=== PATIENT | female | born 1995 | race Caucasian/White ===

== ENCOUNTER 2017-05-02 16:09 | Observation (INO) | payer BC, MEDICAID ==
[2017-05-02] VITALS (7 sets, daily range): BP systolic 96–107; BP diastolic 51–59; PULSE 71–86; TEMP 97.3–98.4
[~2017-05-02] VITALS: Ht 157.5 cm; Wt 66.4 kg
[2017-05-02] MEDS ORDERED: XANAX .25M0.25 MG/TA PO (16:18)
[2017-05-02] MEDS ORDERED: PROTONIX20 MG PO (16:18)
[2017-05-02] MEDS ORDERED: LITHIUM CA150 MG/CAP PO (16:19)
[2017-05-02 17:15] LABS: BASO # 0.1 (0.0-0.2); BASO % 0.4 % (0.0-2.0); EOS % 0.1 % (0-4.0); GRAN # 13.8 (1.4-6.5); GRAN % 82.1 % (42.2-75.2); HEMATOCRIT 38.6 % (35.0-45.0); HEMOGLOBIN 12.5 g/dl (12.0-15.0); LYMPH % 11.7 % (20.0-51.0); MEAN CELL VOLUME 88 fl (80.0-95.0); MEAN CORPUSCULAR HEMOGLOBIN 29 pg (26.0-32.0); MEAN CORPUSCULAR HGB CONC 32 g/dl (33.0-37.0); MEAN PLATELET VOLUME 9.6 fl (7.4-10.4); MONO # 0.9 (0.1-0.6); MONO % 5.3 % (1.7-9.3); PLATELET COUNT 338 K/mm3 (130-400); RED BLOOD COUNT 4.39 M/mm3 (4.10-5.30); REDCELL DISTRIBUTION WIDTH-CV 13.3 % (11.5-14.5)
[2017-05-02 17:25] LABS: COLLECTION METHOD CLEAN CATCH
[2017-05-02 17:26] LABS: BILIRUBIN,TOTAL 0.5 mg/dL (0.0-1.0); CALCIUM 9.6 mg/dL (8.4-10.2); CREATININE, serum 0.77 mg/dL (0.52-1.25); POTASSIUM 3.7 mmol/L (3.4-5.0); TOTAL PROTEIN 8.6 gm/dL (6.4-8.2)
[2017-05-02 19:09] LABS: PH 6 (5-8); URINE APPEARANCE Clear; URINE BILIRUBIN Negative (NEGATIVE); URINE BLOOD Negative (NEGATIVE); URINE COLOR Yellow; URINE GLUCOSE Negative (NEGATIVE); URINE KETONE Negative (NEGATIVE); URINE LEUKOCYTE ESTERASE Negative (NEGATIVE); URINE NITRATE Negative (NEGATIVE); URINE PROTEIN(semi-quant) Negative (NEGATIVE); URINE UROBILINOGEN Negative (NEGATIVE)
[2017-05-02 19:11] LABS: URINE BACTERIA None Seen /hpf; URINE RBC 0-2 /hpf
[2017-05-03 00:43] VITALS: BP 122/75; PULSE 71; TEMP 98.2
[2017-05-03 05:43] VITALS: BP 97/48; PULSE 58; TEMP 98.2
[2017-05-03] MEDS ORDERED: NORCO 325 MG-51 TAB PO (09:02)
[2017-05-03 10:44] VITALS: BP 102/62; PULSE 96; TEMP 97.9
== END 2017-05-03 14:30 | disposition home or self-care (01) ==
LOC: COL.ER 16:09 → SURG 18:51
PROVIDERS: Emergency Medicine
DX: K35.80 Unspecified acute appendicitis (principal); F17.210 Nicotine dependence, cigarettes, uncomplicated; F25.9 Schizoaffective disorder, unspecified; F41.9 Anxiety disorder, unspecified; Z88.1 Allergy status to other antibiotic agents; F41.0 Panic disorder [episodic paroxysmal anxiety]
CPT/HCPCS: J0330; J1100; J1200; J1885; J1956; J2250; J2270; J2405; J2704; J2710; J2765; J3010; J7030; J7120; Q9967

== ENCOUNTER 2017-06-17 22:21 | Emergency (ER) | payer BC, MEDICAID ==
[~2017-06-17] VITALS: Ht 160 cm; Wt 65.9 kg
[~2017-06-17 22:21] MED LIST: LITHIUM CA150 MG/CAP PO; NORCO 325 MG-51 TAB PO; PROTONIX20 MG PO; XANAX .25M0.25 MG/TA PO
[2017-06-17 22:24] VITALS: BP 141/98; PULSE 106; TEMP 97.9
== END 2017-06-17 22:56 | disposition home or self-care (01) ==
LOC: COL.ER 22:21
DX: S61.412A Laceration without foreign body of left hand, initial encounter (principal); F41.9 Anxiety disorder, unspecified; Z88.1 Allergy status to other antibiotic agents; W26.0XXA Contact with knife, initial encounter

== ENCOUNTER 2017-08-16 20:24 | Emergency (ER) | payer BC, MEDICAID ==
[~2017-08-16] VITALS: Ht 160 cm; Wt 67.7 kg
[2017-08-16 20:30] VITALS: BP 133/89; PULSE 131; TEMP 100.4
[2017-08-16] MEDS ORDERED: VRAYLAR1.5 MG PO (22:16)
[2017-08-16] MEDS ORDERED: INDERAL 10MG10 MG PO (22:16)
== END 2017-08-16 23:12 | disposition home or self-care (01) ==
LOC: COL.ER 20:24
DX: S52.101A Unspecified fracture of upper end of right radius, initial encounter for closed fracture (principal); V00.131A Fall from skateboard, initial encounter; Y92.830 Public park as the place of occurrence of the external cause

== ENCOUNTER 2018-01-22 15:24 | Emergency (ER) | payer BC, MEDICAID ==
[~2018-01-22] VITALS: Ht 160 cm; Wt 75.5 kg
[~2018-01-22 15:24] MED LIST changes: +INDERAL 10MG10 MG PO; +VRAYLAR1.5 MG PO
[2018-01-22 16:03] LABS: COLLECTION METHOD CLEAN CATCH
[2018-01-22 16:06] LABS: BASO % 0.5 % (0.0-2.0); EOS # 0.1 (0.0-0.7); EOS % 0.9 % (0-4.0); GRAN # 5.4 (1.4-6.5); GRAN % 64.3 % (42.2-75.2); HEMATOCRIT 40.5 % (35.0-45.0); HEMOGLOBIN 13.3 g/dl (12.0-15.0); LYMPH # 2.3 (1.2-3.4); LYMPH % 27.7 % (20.0-51.0); MEAN CELL VOLUME 85 fl (80.0-95.0); MEAN CORPUSCULAR HEMOGLOBIN 28 pg (26.0-32.0); MEAN CORPUSCULAR HGB CONC 33 g/dl (33.0-37.0); MEAN PLATELET VOLUME 9.6 fl (7.4-10.4); MONO # 0.6 (0.1-0.6); MONO % 6.5 % (1.7-9.3); PLATELET COUNT 385 K/mm3 (130-400); RED BLOOD COUNT 4.74 M/mm3 (4.10-5.30); REDCELL DISTRIBUTION WIDTH-CV 13.7 % (11.5-14.5)
[2018-01-22 16:09] LABS: PH 8 (5-8); SQUAMOUS EPITHELIAL 0-2 /hpf; URINE APPEARANCE Clear; URINE BACTERIA Rare /hpf; URINE BILIRUBIN Negative (NEGATIVE); URINE BLOOD Negative (NEGATIVE); URINE COLOR Yellow; URINE GLUCOSE Negative (NEGATIVE); URINE KETONE Negative (NEGATIVE); URINE LEUKOCYTE ESTERASE Negative (NEGATIVE); URINE NITRATE Negative (NEGATIVE); URINE PROTEIN(semi-quant) Negative (NEGATIVE); URINE RBC 0-2 /hpf; URINE UROBILINOGEN Negative (NEGATIVE)
[2018-01-22 16:24] LABS: ALANINE AMINOTRANSFERASE 31 U/L (9-52); ALBUMIN 4.4 gm/dL (3.5-5.0); ALKALINE PHOSPHATASE 54 U/L (50-136); ANION GAP 8 mmol/L (7-16); AST,SGOT 31 U/L (15-37); BILIRUBIN,TOTAL 0.7 mg/dL (0.0-1.0); BLOOD UREA NITROGEN 13 mg/dL (7-17); CALCIUM 9.9 mg/dL (8.4-10.2); CARBON DIOXIDE 28 mmol/L (22-30); CHLORIDE 105 mmol/L (98-107); GLUCOSE 91 mg/dL (74-106); POTASSIUM 4.2 mmol/L (3.4-5.0); SODIUM 141 mmol/L (137-145); TOTAL PROTEIN 8.1 gm/dL (6.4-8.2)
[2018-01-22 16:25] LABS: ACETAMINOPHEN < 10 ug/mL (10-30); ALCOHOL(ethanol),MEDICAL < 10 mg/dL; SALICYLATE < 1.0 mg/dL; TRICYCLIC ANTIDEPRESS URINE NEGATIVE
[2018-01-23 05:00] VITALS: TEMP 97.8
[2018-01-23 10:22] VITALS: BP 103/58; PULSE 82
== END 2018-01-23 10:48 ==
LOC: COL.ER 15:24
PROVIDERS: Emergency Medicine
DX: T42.4X2A Poisoning by benzodiazepines, intentional self-harm, initial encounter (principal); S60.811A Abrasion of right wrist, initial encounter; S60.812A Abrasion of left wrist, initial encounter; R45.851 Suicidal ideations; F32.9 Major depressive disorder, single episode, unspecified; F25.9 Schizoaffective disorder, unspecified; F17.210 Nicotine dependence, cigarettes, uncomplicated; X78.8XXA Intentional self-harm by other sharp object, initial encounter
CPT/HCPCS: J2405; J7030

== ENCOUNTER 2018-12-23 16:20 | Emergency (ER) | payer BC, MEDICAID ==
[~2018-12-23] VITALS: Ht 160 cm; Wt 77.3 kg
[2018-12-23 16:31] VITALS: TEMP 98.2
[2018-12-23 16:52] LABS: COLLECTION METHOD CLEAN CATCH
[2018-12-23 17:30] LABS: BASO # 0.1 (0.0-0.2); BASO % 0.6 % (0.0-2.0); EOS # 0.1 (0.0-0.7); EOS % 1.2 % (0-4.0); GRAN # 5.8 (1.4-6.5); HEMATOCRIT 43.5 % (37.0-47.0); HEMOGLOBIN 13.9 g/dl (12.5-16.0); LYMPH # 1.9 (1.2-3.4); LYMPH % 22.6 % (20.0-51.0); MEAN CELL VOLUME 86 fl (80.0-100.0); MEAN CORPUSCULAR HEMOGLOBIN 27 pg (27.0-31.0); MEAN CORPUSCULAR HGB CONC 32 g/dl (33.0-37.0); MEAN PLATELET VOLUME 9.9 fl (7.4-10.4); MONO # 0.6 (0.1-0.6); MONO % 7.2 % (1.7-9.3); PLATELET COUNT 384 K/mm3 (130-400); RED BLOOD COUNT 5.07 M/mm3 (4.10-5.30); REDCELL DISTRIBUTION WIDTH-CV 15.1 % (11.5-14.5)
[2018-12-23 17:39] LABS: MUCOUS Present /lpf; PH 6 (5-8); SQUAMOUS EPITHELIAL 0-2 /hpf; URINE APPEARANCE Clear; URINE BACTERIA None Seen /hpf; URINE BILIRUBIN Negative (NEGATIVE); URINE BLOOD 2+ (NEGATIVE); URINE COLOR Yellow; URINE GLUCOSE Negative (NEGATIVE); URINE KETONE Negative (NEGATIVE); URINE LEUKOCYTE ESTERASE Negative (NEGATIVE); URINE NITRATE Negative (NEGATIVE); URINE PROTEIN(semi-quant) Negative (NEGATIVE); URINE RBC 0-2 /hpf; URINE UROBILINOGEN Negative (NEGATIVE)
[2018-12-23 17:57] LABS: TRICYCLIC ANTIDEPRESS URINE NEGATIVE
[2018-12-23 17:58] LABS: ALANINE AMINOTRANSFERASE 17 U/L (9-52); ALBUMIN 4.7 gm/dL (3.5-5.0); ALKALINE PHOSPHATASE 68 U/L (50-136); ANION GAP 12 mmol/L (7-16); AST,SGOT 31 U/L (15-37); BILIRUBIN,TOTAL 0.2 mg/dL (0.0-1.0); BLOOD UREA NITROGEN 15 mg/dL (7-17); CALCIUM 9.5 mg/dL (8.4-10.2); CARBON DIOXIDE 23 mmol/L (22-30); CHLORIDE 106 mmol/L (98-107); GLUCOSE 100 mg/dL (74-106); POTASSIUM 4.2 mmol/L (3.4-5.0); SODIUM 141 mmol/L (137-145); TOTAL PROTEIN 8.9 gm/dL (6.4-8.2)
[2018-12-23 18:01] LABS: ACETAMINOPHEN < 10 ug/mL (10-30); ALCOHOL(ethanol),MEDICAL < 10 mg/dL
[2018-12-23] MEDS ORDERED: REXULTI4 MG PO (20:57)
[2018-12-23] MEDS ORDERED: KLONOPIN 0.5MG0.5 MG (20:58)
[2018-12-23] MEDS ORDERED: ADDERALL5 MG (20:58)
[2018-12-23] MEDS ORDERED: AMBIEN 5MG TABLE5 MG (20:59)
--- NOTE | 2018-12-25 14:00 | NUR ---
This RN at bedside. Introduced to patient. AOx4. 1415: RN continuosly at bedside. Pt AOX4. Visiting with friends.
--- NOTE | 2018-12-25 14:30 | NUR ---
Pt A0x4. Sitting upright in bed. Visiting with company at this time.
--- NOTE | 2018-12-25 14:45 | NUR ---
Pt resting in bed at this time. VS are as followed BP 111/78 HR 115 BPM TEMP ORAL 97.3 F PULSE OX 97%
--- NOTE | 2018-12-25 14:59 | NUR ---
Pt resting in bed
[2018-12-25 17:55] VITALS: BP 112/72; PULSE 88
== END 2018-12-25 17:55 ==
LOC: COL.ER 16:20
PROVIDERS: Emergency Medicine
DX: R45.851 Suicidal ideations (principal); F32.9 Major depressive disorder, single episode, unspecified; F25.9 Schizoaffective disorder, unspecified; F17.290 Nicotine dependence, other tobacco product, uncomplicated; F43.10 Post-traumatic stress disorder, unspecified; F41.9 Anxiety disorder, unspecified; Z90.89 Acquired absence of other organs
CPT/HCPCS: G0463